=== PATIENT | male | born 1985 | race Caucasian/White ===

== ENCOUNTER 2018-10-18 16:56 | Emergency (ER) | payer SELFPAY ==
[2018-10-18] MEDS ORDERED: IPRATROPIUM BROM 0.5MG/2.5ML ONE (19:17)
[2018-10-18] MEDS ORDERED: ALBUTEROL 2.5 MG/3 ML NEB SOL ONE (19:17)
[2018-10-18 19:25] LABS: Absolute Lymphocytes (CBC) 3.2 K/uL (0.7-4.9); Basophils % 0.3 % (0-1.3); Hematocrit 43.1 % (39.6-49.0); Lymphocytes % 21.1 % (15.3-44.8); RBC Red Blood Cell Count 4.32 M/uL (4.33-5.43)
--- NOTE | 2018-10-18 19:26 | RAD REPORT ---
EXAM DESCRIPTION: RAD - Chest Pa And Lat (2 Views) - 10/18/2018 7:21 pm CLINICAL HISTORY: cough, fever Chest pain. COMPARISON: CHEST SINGLE VIEW dated 06/18/2008; CHEST PA AND LAT 2 VIEW dated 11/17/2004 FINDINGS: The lungs are clear. The heart is normal in size. No displaced fractures. IMPRESSION: No acute or concerning finding suspected.
[2018-10-18 19:54] LABS: ALT/SGPT 20 U/L (12-78); AST/SGOT 15 U/L (15-37); Albumin 3.8 g/dL (3.4-5.0); Alkaline Phosphatase 85 U/L (45-117); BUN Blood Urea Nitrogen 12 mg/dL (7-18); Bicarbonate 26 mmol/L (21-32); Bilirubin Direct 0.1 mg/dL (0-0.2); Bilirubin Total 0.4 mg/dL (0.2-1.0); Glucose Level 83 mg/dL (74-106); Lipase 84 U/L (73-393); Potassium 3.7 mmol/L (3.5-5.1); Protein, Total 7.6 g/dL (6.4-8.2); Sodium Level 141 mmol/L (136-145)
--- NOTE | 2018-10-18 20:16 | ER ---
Nurse's Notes [facility] Name: Fer Stevenson Age: 33 yrs Sex: Male : 1985 Arrival Date: 10/18/2018 Time: 16:57 Bed 23 Private MD: Mei Mehta H Diagnosis: Influenza due to other identified influenza virus Presentation: 10/18 18:04 Presenting complaint: Patient states: stomach has been in knots, feels weak and faint, iw +n/v/d, sore throat today, +cough, +fever, on abx from Dr. Mehta since Tuesday for stomach infection. Transition of care: patient was not received from another setting of care. Onset of symptoms was October 16, 2018. Risk Assessment: Do you want to hurt yourself or someone else? Patient reports no desire to harm self or others. Initial Sepsis Screen: Does the patient meet any 2 criteria? No. Patient's initial sepsis screen is negative. Does the patient have a suspected source of infection? Yes: No. Patient's initial sepsis screen is negative. Care prior to arrival: None. 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 - Social history:: Smoking status: Patient/guardian denies using tobacco. - Ebola Screening: : Patient negative for fever greater than or equal to 101.5 degrees Fahrenheit, and additional compatible Ebola Virus Disease symptoms Patient denies exposure to infectious person Patient denies travel to an Ebola-affected area in the 21 days before illness onset No symptoms or risks identified at this time. Screenin:14 Abuse screen: Denies threats or abuse. Denies injuries from another. Nutritional rv screening: No deficits noted. Tuberculosis screening: No symptoms or risk factors identified. 18:14 Fall Risk None identified. rv Assessment: 18:16 General: Appears in no apparent distress. Behavior is anxious. Pain: Complains of pain rv in abdomen. Neuro: Level of Consciousness is awake, alert, obeys commands, Oriented to person, place, time, situation. Cardiovascular: Patient's skin is warm and dry. Respiratory: Airway is patent. GI: No signs and/or symptoms were reported involving the gastrointestinal system. : No signs and/or symptoms were reported regarding the genitourinary system. EENT: No signs and/or symptoms were reported regarding the EENT system. Derm: Skin is intact. Musculoskeletal: No signs and/or symptoms reported regarding the musculoskeletal system. Vital Signs: 18:06 BP 129 / 86; Pulse 73; Resp 16; Temp 99.0(TE); Pulse Ox 98% on R/A; Weight 61.23 kg; iw Height 5 ft. 6 in. (167.64 cm); Pain 10/10; 19:00 BP 132 / 88; Pulse 74; Resp 17; Pulse Ox 98% on R/A; rv 20:09 BP 130 / 75; Pulse 79; Resp 16; Pulse Ox 100% on R/A; rv 18:06 Body Mass Index 21.79 (61.23 kg, 167.64 cm) iw ED Course: 16:57 Patient arrived in ED. ag5 16:57 Mei Mehta DO is Private Physician. ag5 18:05 Triage completed. iw 18:07 Arm band placed on. iw 18:12 Jose Guadalupe Gutierrez, RN is Primary Nurse. rv 18:14 Patient has correct armband on for positive identification. Bed in low position. Call rv light in reach. Side rails up X 1. Pulse ox on. NIBP on. 18:31 Arnel Still PA is PHCP. [facility] 18:31 Fer Tracey MD is Attending Physician. [facility] 19:00 No provider procedures requiring assistance completed. Inserted saline lock: 20 gauge rv in right antecubital area, using aseptic technique. Blood collected. 19:21 Chest Pa And Lat (2 Views) XRAY In Process Unspecified. EDMS 20:10 IV discontinued, intact, bleeding controlled, No redness/swelling at site. Pressure rv dressing applied. 20:15 Mei Mehta DO is Referral Physician. [facility] Administered Medications: 19:22 Drug: DuoNeb (3:1) (2.5 mg - 0.5 mg) 3 ml Route: Nebulizer; mg2 20:21 Follow up: Response: No adverse reaction; Marked relief of symptoms rv Outcome: 20:10 Discharged to home ambulatory, with family. rv 20:10 Condition: good 20:10 Discharge instructions given to patient, family, Instructed on discharge instructions, follow up and referral plans. medication usage, Demonstrated understanding of instructions, follow-up care, medications, Prescriptions given X 3. 20:16 Discharge ordered by MD. thompson 20:21 Patient left the ED. rv Signatures: Dispatcher [employer] EDMS Arnel Still PA PA jmm Williams, Irene, RN RN iw Andre Plascencia RN RN [facility] Jose Guadalupe Gutierrez RN RN rv Heriberto Ortiz ag5 Corrections: (The following items were deleted from the chart) 20:21 20:10 Discharge instructions given to patient, family, Instructed on discharge rv instructions, follow up and referral plans. medication usage, Demonstrated understanding of instructions, follow-up care, medications, Prescriptions given X 1, rv
--- NOTE | 2018-10-18 20:17 | EDPHYS ---
Physician Documentation [facility] Name: Fer Stevenson Age: 33 yrs Sex: Male : 1985 Arrival Date: 10/18/2018 Time: 16:57 Bed 23 Private MD: Mei Mehta H ED Physician Fer Tracey HPI: 10/18 19:07 This 33 yrs old Male presents to ER via Ambulatory with complaints of Doesn't jmm Feel Right. 19:07 The patient or guardian reports cough. Onset: The symptoms/episode began/occurred jmm gradually, 4 day(s) ago. Modifying factors: The symptoms are alleviated by nothing. the symptoms are aggravated by nothing. Associated signs and symptoms: Pertinent positives: diarrhea, fever, vomiting. This is a 33 year old male with no chronic medical conditions that presents to the ED with complaints of cough, vomiting, diarrhea, abdominal pain beginning this past Tuesday. Symptoms have been intermittent. . 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 - Social history:: Smoking status: Patient/guardian denies using tobacco. - Ebola Screening: : Patient negative for fever greater than or equal to 101.5 degrees Fahrenheit, and additional compatible Ebola Virus Disease symptoms Patient denies exposure to infectious person Patient denies travel to an Ebola-affected area in the 21 days before illness onset No symptoms or risks identified at this time. ROS: 19:07 Eyes: Negative for injury, pain, redness, and discharge, Cardiovascular: Negative for jmm chest pain, palpitations, and edema. 19:07 Constitutional: Positive for body aches, chills, fever. 19:07 Respiratory: Positive for cough. 19:07 Abdomen/GI: Positive for abdominal pain, nausea and vomiting, diarrhea. 19:07 All other systems are negative. Exam: 19:07 Constitutional: This is a well developed, well nourished patient who is awake, alert, jmm and in no acute distress. Head/Face: atraumatic. Eyes: EOMI, no conjunctival erythema appreciated ENT: Moist Mucus Membranes Neck: Trachea midline, Supple Chest/axilla: Normal chest wall appearance and motion. Cardiovascular: Regular rate and rhythm. No edema appreciated 19:07 Respiratory: the patient does not display signs of respiratory distress, Respirations: normal, Breath sounds: wheezing: that is moderate, is scattered. 19:07 Abdomen/GI: Inspection: abdomen appears normal, Bowel sounds: normal, Palpation: abdomen is soft and non-tender, in all quadrants. 19:07 Musculoskeletal/extremity: ROM: intact in all extremities. 19:07 Skin: Appearance: Color: normal in color. 19:07 Neuro: Orientation: is normal, Mentation: is normal, Memory: is normal. 19:07 Psych: Behavior/mood is pleasant, cooperative. Vital Signs: 18:06 BP 129 / 86; Pulse 73; Resp 16; Temp 99.0(TE); Pulse Ox 98% on R/A; Weight 61.23 kg; iw Height 5 ft. 6 in. (167.64 cm); Pain 10/10; 19:00 BP 132 / 88; Pulse 74; Resp 17; Pulse Ox 98% on R/A; rv 20:09 BP 130 / 75; Pulse 79; Resp 16; Pulse Ox 100% on R/A; rv 18:06 Body Mass Index 21.79 (61.23 kg, 167.64 cm) iw MDM: 18:52 Patient medically screened. [facility] 20:15 Data reviewed: vital signs, nurses notes. Counseling: I had a detailed discussion with jay the patient and/or guardian regarding: the historical points, exam findings, and any diagnostic results supporting the discharge/admit diagnosis, lab results, radiology results, the need for outpatient follow up, to return to the emergency department if symptoms worsen or persist or if there are any questions or concerns that arise at home. ED course: Patient is alert and non toxic in appearance. Patient advised to follow up with pcp and otherwise given strict return precautions. patient understood and agrees with the plan of care. . 10/18 19:02 Order name: Basic Metabolic Panel; Complete Time: 19:55 [facility] 10/18 19:02 Order name: CBC with Diff; Complete Time: 19:55 [facility] 10/18 19:02 Order name: Creatinine for Radiology; Complete Time: 19:55 [facility] 10/18 19:02 Order name: Hepatic Function; Complete Time: 19:55 [facility] 10/18 19:02 Order name: Lipase; Complete Time: 19:55 [facility] 10/18 19:03 Order name: Lactate; Complete Time: 19:46 [facility] 10/18 19:02 Order name: IV Saline Lock; Complete Time: 19:16 [facility] 10/18 19:02 Order name: Labs collected and sent; Complete Time: 19:16 [facility] 10/18 19:03 Order name: Procalcitonin; Complete Time: 19:57 [facility] 10/18 19:03 Order name: Blood Culture Adult (2) [facility] 10/18 19:03 Order name: Flu; Complete Time: 20:02 [facility] 10/18 19:03 Order name: Chest Pa And Lat (2 Views) XRAY; Complete Time: 19:46 [facility] Administered Medications: 19:22 Drug: DuoNeb (3:1) (2.5 mg - 0.5 mg) 3 ml Route: Nebulizer; mg2 20:21 Follow up: Response: No adverse reaction; Marked relief of symptoms rv Disposition: 10/18/18 20:16 Discharged to Home. Impression: Influenza due to other identified influenza virus. - Condition is Stable. - Discharge Instructions: Influenza, Adult. - Prescriptions for Zofran ODT 4 mg Oral tablet,disintegrating - place 1 tablet by TRANSLINGUAL route every 4-6 hours; 20 tablet. promethazine 25 mg Oral Tablet - take 1 tablet by ORAL route every 6 hours As needed; 20 tablet. Albuterol Sulfate 90 mcg/actuation - inhale 1-2 puff by INHALATION route every 4-6 hours; 1 Inhaler. - Medication Reconciliation Form, Thank You Letter, Antibiotic Education, Prescription Opioid Use form. - Follow up: Mei Mehta DO; When: 2 - 3 days; Reason: Recheck today's complaints, Continuance of care, Re-evaluation by your physician. Addendum: 10/23/2018 09:46 Co-signature as Attending Physician, Fer Tracey MD I agree with the assessment and k dr plan of care. Signatures: Dispatcher [employer] EDFer Nguyen MD MD kdr Mickail, Joel, PA PA [facility] Sheryl Mckeon RN RN iw Andre Plascencia RN RN mg2 Jose Guadalupe Gutierrez RN RN rv Corrections: (The following items were deleted from the chart) 10/18 20:21 20:16 10/18/2018 20:16 Discharged to Home. Impression: Influenza due to other rv identified influenza virus. Condition is Stable. Forms are Medication Reconciliation Form, Thank You Letter, Antibiotic Education, Prescription Opioid Use. Follow up: Mei Mehta; When: 2 - 3 days; Reason: Recheck today's complaints, Continuance of care, Re-evaluation by your physician. jay
[2018-10-18 20:54] VITALS: TEMP 99
[2018-10-18 20:56] VITALS: BP 130/75; O2SAT 100
== END 2018-10-18 20:21 | disposition home or self-care (01) ==
LOC: ER 16:56
DX: J10.1 Influenza due to other identified influenza virus with other respiratory manifestations (principal)
CPT/HCPCS: 36415; 71046; 80048; 80076; 83605; 83690; 84145; 85025; 87040; 87804; 94640; 99284